=== PATIENT | female | born 1985 | race Caucasian/White ===

== ENCOUNTER 2023-04-06 16:06 | Emergency (ER) | payer BC, SELFPAY ==
[2023-04-06 16:07] VITALS: BP 130/88
--- NOTE | 2023-04-06 16:47 | ED.GENMED ---
History of Present Illness
General
Chief Complaint: Cold/Flu/URI Symptoms
Source: patient
Exam Limitations: none
Time Seen by Provider: 04/06/23 16:47
Nursing documentation reviewed up to this point in time: agreed with
Travel History
Have you had any contact with someone who has COVID-19?: No
Do you have any symptoms of coronavirus? Fever > 100 degrees, chills, cough, shortness of breath, sore throat, loss of taste or smell, muscle aches, or headache?: No
History of Present Illness
History of Present Illness:
37-year-old female with history of asthma, ulcerative colitis, PFO, migraines GERD, anxiety presents stating she's had a cough for 7 weeks. Saw PCP in [place], saw her poultry cleaner several times, was on two courses of steroid taper which helped
initially but then symptoms returned. Last steroid taken 03/29. Takes Albuterol and Xopenex nebulizations with little help.
Yesterday developed fever 102, headache, body aches.
Has felt nauseous intermittently, no vomiting. She had a chest x-ray of 03/04 which she states was 'fine.' She has tested negative for COVID several times.
States she had similar symptoms in November and it took her 2 months to recover.
She has severe seasonal allergies
Past History
Past History
ED Past Medical History: Asthma, GERD, Psychiatric (Anxiety) and Other (Ulcerative colitis)
ED Past Surgical History: Orthopedic
Social History
Tobacco: Non-smoker
Alcohol: Occasional
Personal:
Living: with family
Employment: Employed
Review of Systems
Review of Systems
Allergies reviewed?: Yes
All Other Systems: ROS reviewed and negative except as documented in HPI and ROS
Constitutional: Reports fever and fatigue
EENT: Denies sore throat
Respiratory: Reports cough and trouble breathing
Cardiac: Denies chest pain
ABD/GI: Reports nausea; Denies abdominal pain, vomiting or diarrhea
: Denies dysuria, difficulty voiding or urgency
Musculoskeletal: Reports other (General body aches)
Skin: Reports no symptoms
Neurological: Reports headache; Denies dizzy, weakness or numbness
Phy Exam
Physical Exam
Physical Exam:
GENERAL: No acute distress. A&Ox3.
CONSTITUTIONAL: Temp 99.1 for this examiner
EYES: Clear, conjunctivae normal
Neck: Supple
ENMT: moist mucus membranes, Pharynx nl
RESPIRATORY: Regular respirations, nonlabored, lungs with mild scattered wheezes throughout. Frequent coarse paroxysms of cough. Pulse ox 99% room air.
CARDIOVASCULAR: Regular rate and rhythm, no murmurs, no rubs.
GI: Soft, nontender, normal BS
MUSCULOSKELETAL: Moves with ease. Well perfused.
SKIN: Warm, dry, pink
PSYCH: Normal mood and affect. Well kept, interactive and appropriate
NEUROLOGIC: Awake, alert and oriented. No focal neurological deficits
Course
Orders/Labs/Results
Orders:
Orders
04/06/23 16:57
Ketorolac [Toradol] 15 mg IV NOW STA
CR Chest - 2 Views Urgent
Comment:
Reason For Exam: cough 7 weeks, fever past 24 hours
04/06/23 16:58
0.9% Sodium Chloride 1000 ml [Nss] 1,000 ml IV BOLUS
04/06/23 17:15
COVID-19 Antigen Urgent
Source: Nasal Swab
Complete Blood Count/With Diff Urgent
Comprehensive Metabolic Panel Urgent
Influenza A+B Rapid Molecular Urgent
[facility] Source: Nasal Swab
Specimen Description:
Dexamethasone [Decadron] 10 mg PO NOW STA
04/06/23 18:29
Doxycycline [Vibramycin] 100 mg PO NOW STA
Abnormal Lab Results
04/06/23
17:15
Plt Count 404 H 10^3/uL
(130-400)
Absolute Neuts (auto) 7.5 H 10^3/uL
(1.4-6.5)
Absolute Monos (auto) 0.9 H 10^3/uL
(0.1-0.6)
Lymphocytes % 18.4 L %
(20.5-51.1)
Sodium 134 L mmol/L
(135-145)
BUN 6 L mg/dl
(7-17)
Glucose 116 H mg/dl
(70-99)
04/06/23 17:15
04/06/23 17:15
Vital Signs
Initial and Last Documented VS:
Initial Vital Signs
Temp Pulse Resp BP Pulse Ox
98.7 F 94 16 130/88 99
04/06/23 16:07 04/06/23 16:07 04/06/23 16:07 04/06/23 16:07 04/06/23 16:07
Last Documented Vital Signs
Temp Pulse Resp BP Pulse Ox
98.7 F 84 16 124/70 97
04/06/23 16:07 04/06/23 17:29 04/06/23 17:29 04/06/23 17:29 04/06/23 17:45
MDM/Problems Addressed
Differential Diagnosis Includes:
Asthma exacerbation, Bronchitis, PNA, covid, flu
MDM/Problems Addressed:
37-year-old female with history of asthma, ulcerative colitis, PFO, migraines GERD, anxiety presents stating she's had a cough for 7 weeks. Saw PCP in [place], saw her poultry cleaner several times, was on two courses of steroid taper which helped
initially but then symptoms returned. Last steroid taken 03/29. Takes Albuterol and Xopenex nebulizations with little help.
Yesterday developed fever 102, headache, body aches.
Has felt nauseous intermittently, no vomiting. She had a chest x-ray of 03/04 which she states was 'fine.' She has tested negative for COVID several times.
States she had similar symptoms in November and it took her 2 months to recover.
She has severe seasonal allergies
NAD, Afebrile
04/06/2023 1827 PM
CBC normal
CMP normal
COVID-negative
Influenza negative
Chest x-ray: Radiology for read: Probable subtle pneumonia in the posterior lung base.
Plan: Doxycycline, Prednisone and f/u with PCP, poultry cleaner or Pulmonology
She is appreciative of care and comfortable with this plan.
Chronic conditions affecting care: Asthma
*Critical Care Note
Total Time (30-74mins, 75-104mins- exclusive of procedures): Not Applicable
ED Attending Note
-
Portions of this chart may have been created with voice recognition software.� Occasional wrong word or��sound alike� substitutions may have occurred due to the inherent limitations of voice recognition software.
Discharge Plan
Departure
Patient Disposition: Home (Routine Discharge)
Date of Disposition: 04/06/23
Time of Disposition: 18:29
Patient with high blood pressure during this ER visit?: No
Condition: Fair
Covid-19: Negative COVID-19
Discharge Problem:
Pneumonia
Instructions: Pneumonia in adults
Prescriptions:
New
doxycycline hyclate 100 mg capsule
100 mg PO BID Qty: 19 0RF
prednisone 20 mg tablet
40 mg PO DAILY Qty: 10 0RF
Rx Instructions:
40 mg daily for 3 days then 20 mg daily for 3 days
Referrals:
Lavonne Armstrong MD [Active] - Next open appointment
Estelle Pressley DO [Family Provider] - Follow up in 5-7 days
Activity Restrictions/Additional Instructions:
As we discussed, you have mild pneumonia. I sent a prescription to your pharmacy for the antibiotic doxycycline and also mild steroid taper
Touch base with your primary doctor sometime within the next week for an update and see how you are doing
I gave you the name of a judo instructor if needed for further lung evaluation.
Interventions
Interventions:
*Risk Screen - Suicide Last Done: 04/06/23 17:30
*General Assessment Last Done: 04/06/23 17:30
*Neglect/Abuse Screening Last Done: 04/06/23 17:30
ED- Fall Risk Assessment Last Done: 04/06/23 18:41
*ED COVID-19 Vaccine History Last Done: 04/06/23 16:07
*Nursing Disposition Last Done: 04/06/23 18:42
ED- Pulmonary Assessment Last Done: 04/06/23 17:29
Discharge Date and Time
Discharge Date/Time: 04/06/23 18:42
[2023-04-06] MEDS: TORADOL 15 MG IV (17:17)
[2023-04-06] MEDS: NSS 1000 IV (17:21)
[2023-04-06] MEDS: DECADRON 10 MG PO (17:22)
[2023-04-06 17:29] VITALS: BP 124/70
[2023-04-06 17:41] LABS: % Basophils 0.5 % (0-2); % Eosinophils 2.2 % (0-6); % Immature Granulocytes 0.3 % (0-0.5); % Lymphocytes 18.4 % (20.5-51.1); % Monocytes 8.1 % (1.7-9.3); % Neutrophils 70.5 % (42.2-75.2); Absolute Basophils 0.1 10^3/uL (0-0.2); Absolute Eosinophils 0.2 10^3/uL (0-0.7); Absolute Monocytes 0.9 10^3/uL (0.1-0.6); Absolute Neutrophils 7.5 10^3/uL (1.4-6.5); Hematocrit 37.8 % (37.0-47.0); Hemoglobin 12.8 g/dL (12.0-16.0); Mean Corp Hgb Conc. 33.9 g/dL (33.0-37.0); Mean Corpuscular Hgb 27.8 pg (27.0-31.0); Mean Platelet Volume 8.9 fL (7.4-10.4); Nucleated Red Blood Cells % 0 %; Platelet Count 404 10^3/uL (130-400); Red Blood Cell Count 4.61 10^6/uL (4.20-5.40); Red Cell Dist. Width 13.2 % (11.5-14.5); White Blood Cell Count 10.7 10^3/uL (4.8-10.8)
[2023-04-06 17:53] LABS: COVID-19 Antigen Negative (Negative)
[2023-04-06 18:02] LABS: ALT (SGPT) 24 U/L (0-35); AST (SGOT) 29 U/L (14-36); Albumin 3.8 g/dl (3.5-5.0); Alkaline Phosphatase 81 U/L (38-126); Blood Urea Nitrogen 6 mg/dl (7-17); Carbon Dioxide 23 mmol/L (22-30); Chloride 107 mmol/L (98-107); Glucose 116 mg/dl (70-99); Potassium 3.8 mmol/L (3.5-5.1); Sodium 134 mmol/L (135-145); Total Bilirubin 0.6 mg/dl (0.2-1.3); Total Protein 6.6 g/dl (6.3-8.2); eGFR > 60.00
[2023-04-06] MEDS: VIBRAMYCIN 100 MG PO (18:32)
== END 2023-04-06 18:42 | disposition home or self-care (01) ==
LOC: EMR 16:06
PROVIDERS: Registered Nurse; EMERGENCY PHYSICIAN Emergency Medicine; FAMILY PHYSICIAN Family Medicine
DX: J18.9 Pneumonia, unspecified organism (principal); R11.0 Nausea; R51.9 Headache, unspecified; Z11.52 Encounter for screening for COVID-19; K51.90 Ulcerative colitis, unspecified, without complications; Q21.12 Patent foramen ovale; G43.909 Migraine, unspecified, not intractable, without status migrainosus; K21.9 Gastro-esophageal reflux disease without esophagitis; J45.909 Unspecified asthma, uncomplicated; F41.9 Anxiety disorder, unspecified; Z88.8 Allergy status to other drugs, medicaments and biological substances
CPT/HCPCS: 99284; 96374; 96361; 71046; 80053; 85025; 87502; 87811